=== PATIENT | male | born 1970 | race Caucasian/White ===

== ENCOUNTER 2019-01-31 14:38 | Inpatient (IN) | payer BC ==
[2019-01-31] VITALS (9 sets, daily range): BP systolic 115–167
[~2019-01-31] VITALS: Ht 185.4 cm; Wt 90.7 kg
--- NOTE | 2019-01-31 14:38 | NUR ---
BROUGHT BACK TO BED #1 VIA WHEELCHAIR, PLACED IN BED #1 AND TRIAGED. REPORT GIVEN TO DAVID
--- NOTE | 2019-01-31 14:40 | NUR ---
TING Chen at bedside examining patient.
[2019-01-31] MEDS ORDERED: ONDANSETRON HCL 4 MG/2 ML VIAL IVP ONE (14:45)
[2019-01-31] MEDS ORDERED: LORazepam 2 MG/ML VIAL IVP ONE (14:45)
[2019-01-31] MEDS ORDERED: NS 1000 ML IV.SOLN IV ONE (14:45)
[2019-01-31] MEDS ORDERED: MORPHINE 4 MG/ML INJ. SYRINGE IVP ONE (14:45)
--- NOTE | 2019-01-31 14:45 | NUR ---
Patient presented to ER after checking [facility] but referred to ER for increased labs. Patient A&Ox4, afebrile, skin pink/yellowish warm, cap refill <3, afebrile, ambulatory to ER, arrived with family members. Patient states hlast alcoholic drink 2 days ago. Patient shaking hands, denies pain, denies N/V/D at this time, patientstates he feels anxious.
--- NOTE | 2019-01-31 14:55 | NUR ---
Blood cultures and Lactic acid sent to lab with blood draw.
[2019-01-31] MEDS ORDERED: FOLIC ACID 5 MG/ML VIAL IV ONE (15:15)
[2019-01-31] MEDS ORDERED: THIAMINE HCL 100 MG in NS 50 ML IV ONE (15:15)
--- NOTE | 2019-01-31 15:19 | NUR ---
Report to Aracelis ROSADO
[2019-01-31 15:21] LABS: BASOPHILS % (AUTO) 0.5 % (0.0-2.0); EOSINOPHILS % (AUTO) 0.8 % (0.0-4.0); HEMATOCRIT 41.6 % (36-54); HEMOGLOBIN 14.4 g/dL (14.0-18.0); LYMPHOCYTES # (AUTO) 1.2 K/uL (1.0-5.5); MEAN CORPUSCULAR HEMOGLOBIN 34 pg (27-31); MEAN CORPUSCULAR HGB CONC 35 % (32-36); MEAN CORPUSCULAR VOLUME 99 fL (79.0-98.0); MONOCYTES # (AUTO) 0.5 K/uL (0.0-1.0); MONOCYTES % (AUTO) 9.1 % (1.7-9.3); NEUTROPHILS # (AUTO) 3.7 K/uL (1.8-7.7); NEUTROPHILS % (AUTO) 67.6 % (40.0-70.0); RED CELL DISTRIBUTION WIDTH 13.7 % (9.0-15.0); WHITE BLOOD COUNT (AUTO) 5.5 K/uL (4.8-10.8)
[2019-01-31 15:38] LABS: PROTHROMBIN TIME 10.3 SECS (9.5-12.5)
[2019-01-31 15:40] LABS: ALBUMIN 2.5 g/dL (3.4-4.8); CREATININE 0.8 mg/dL (0.55-1.30); PLATELET COUNT (AUTO) 147 K/uL (130-430); POTASSIUM 3.3 mmol/L (3.5-5.1); TOTAL BILIRUBIN 2.7 mg/dL (0.0-1.0)
[2019-01-31] MEDS ORDERED: THIAMINE HCL 100 MG/ML VIAL ONE (15:41)
--- NOTE | 2019-01-31 15:42 | NUR ---
Patient medicated per MD orders. Patient tolerated well.
[2019-01-31 15:55] LABS: BILIRUBIN,URINE 1+ (NEGATIVE); BLOOD, URINE NEGATIVE (NEGATIVE); CLARITY/URINE CLEAR (CLEAR); COLOR,URINE AMBER (YELLOW); GLUCOSE,URINE NEGATIVE (NEGATIVE); KETONES,URINE NEGATIVE (NEGATIVE); LEUKOCYTE ESTERASE ,URINE NEGATIVE (NEGATIVE); NITRITE, URINE NEGATIVE (NEGATIVE); PROTEIN URINE 1+ (NEGATIVE)
--- NOTE | 2019-01-31 15:57 | NUR ---
Pt reports he does not take any home medications
[2019-01-31] MEDS ORDERED: NACL 0.9% 1,000 ML IV ONE (16:00)
[2019-01-31 16:22] LABS: BACTERIA,URINE FEW /HPF (None Seen); MUCUS,URINE None Seen /LPF (None Seen); RBC,URINE 0-3 /HPF (0-3); WBC,URINE 0-3 /HPF (0-3)
[2019-01-31] MEDS ORDERED: MAGNESIUM SULFATE IV ONE (16:30)
[2019-01-31] MEDS ORDERED: FOLIC ACID IV ONE (16:30)
[2019-01-31] MEDS ORDERED: THIAMINE HCL 100 MG, MVI 10 ML in NACL 0.9% 1,000 ML IV ONE (16:30)
[2019-01-31] MEDS ORDERED: NACL 0.9% IV ONE (16:30)
[2019-01-31] MEDS ORDERED: FOLIC ACID 1 MG, MAGNESIUM SULFATE 1 GM in NS 100 ML IV ONE (16:33)
--- NOTE | 2019-01-31 16:38 | NUR ---
Patient pulling off leads and blood pressure cuff. Patient appears to be agitated. Patient is tachycardiac at 98, BP is currently 181/93 Respiration 18 O2 98. notfied.
[2019-01-31 16:40] LABS: CALCIUM 8.8 mg/dL (8.4-11.0)
--- NOTE | 2019-01-31 16:42 | NUR ---
Patient now resting in bed. appears more comfortable. Girlfriend at bedside conversing with patient.
--- NOTE | 2019-01-31 16:50 | NUR ---
Patient will be admitted to care of Dr. Camejo. Admitted to ICU unit. Will go to room ICU 4. Belongings list completed. Summary report printed. Report will be given at bedside.
--- NOTE | 2019-01-31 16:59 | NUR ---
Transfer to ICU via ACLS protocol. Licensed nurse present. IV present no signs or symptoms of infiltration.
--- NOTE | 2019-01-31 17:18 | NUR ---
Opening Note Patient received via gurney and placed on ICU-4 awake and alert with no signs of distress @ this time. Patient connected on quality assurance monitor chassis with NSR. Patient on room air breathing evenly and unlabored. Patient has a right forearm 20 gauge IV. Patient has currently no complaints of pain. Skin intact. Safety precautions enforced.
--- NOTE | 2019-01-31 17:48 | NUR ---
ADMITTING MD DR MOYA WAS CALLED RE: MEDICATION ORDERS FOR PAIN, HTN.. SPOKE TO KRYSTAL.
--- NOTE | 2019-01-31 17:54 | NUR ---
CONSULTATION PAGED/CALLED Reason for Consultation: [] ETOH/WITHDRAWAL Person Who was Notified: [] ZAFAR Consulting Physician: [] DR Xenia ALEJO CONSULT MD'S TEL NO: [phone] Feed Crusher Operator Specialty: [] PSYCH Ordering Physician: [] DR Xenia MOYA
[2019-01-31] MEDS ORDERED: cloNIDine HCL 0.1 MG TABLET PO PRN (18:00)
--- NOTE | 2019-01-31 18:10 | NUR ---
Patient is anxious and is attempting to get out of bed at this time while looking for his girlfriend and clothes. Reoriented patient and educated to stay in bed for safety reasons. Patient verbalized understanding.
--- NOTE | 2019-01-31 18:17 | NUR ---
Pt medicated with Ativan and Librium and clonidine but unable to scan at this time.
--- NOTE | 2019-01-31 18:17 | NUR ---
Patient medicated with Ativan 1 mg IV push, Librium 50 mg PO, and clonidine 0.1 mg PO as ordered. Medication unable to scan at this time.
[2019-01-31] MEDS ORDERED: LORazepam 2 MG/ML VIAL ONE (18:23)
[2019-01-31] MEDS ORDERED: cloNIDine HCL 0.1 MG TABLET ONE (18:23)
[2019-01-31] MEDS ORDERED: chlordiazePOXIDE HCL 25 MG CAPSULE ONE (18:24)
--- NOTE | 2019-01-31 18:40 | NUR ---
MD Rounds Dr. Camejo @ bedside for examination. New orders received.
--- NOTE | 2019-01-31 19:21 | NUR ---
Closing Note Endorsed to equipment analyst RN using SBAR format. Patient in no signs of distress.
--- NOTE | 2019-01-31 20:00 | NUR ---
AAOX4. IN NO APPARENT DISTRESS. VSS. DENIES ACUTE PAIN. POX 98%. BREATH SOUNDS ESSENTIALLY CLEAR. ON ROOM AIR. BOWEL SOUNDS (+). PULSES PALPABLE. SKIN W/D. COLOR SATISFACTORY. HOB UP TO COMFORT. SIDE RAILS UP. SR. CALL LIGHT WITHIN REACH. AT BEDSIDE VISITING.
[2019-01-31] MEDS: PANTOPRAZOLE SODIUM 40 MG/VIAL (PROTONIX) IVP SCH (20:27)
[2019-01-31] MEDS: ENOXAPARIN SODIUM 40 MG/0.4 ML SYRINGE SUBCUT SCH (20:28)
[2019-01-31] MEDS: LORazepam 2 MG/ML VIAL IVP PRN (20:29)
[2019-01-31] MEDS: HYDROmorphone 1 MG INJ. 1 MG/ML AMPUL IVP PRN (20:30)
[2019-01-31] MEDS: chlordiazePOXIDE HCL 25 MG CAPSULE PO PRN (20:30)
[2019-01-31] MEDS: cloNIDine HCL 0.2 MG TABLET PO SCH (20:31)
--- NOTE | 2019-01-31 21:00 | NUR ---
RESTLESS. ANXIOUS. BP ON THE HIGH SIDE. LIBRIUM 20 MG, DILAUDID 1 MG IVP FOR ANALGESIA AND ATIVAN 1 MG IVP GIVEN FOR SEDATION.
[2019-02-01] VITALS (17 sets, daily range): BP systolic 123–160
--- NOTE | 2019-02-01 | NUR ---
DOZES ON AND OFF. 0 DISTRESS. DENIES PAIN, AND SOB. REPOSITIONS SELF WELL. LEFT FOR HOME EARLIER.
--- NOTE | 2019-02-01 03:00 | NUR ---
SLEPT INTERMITTENTLY. CLONIDINE 0.1MG PO GIVEN FOR HTN. VOIDED 350CC CLEAR CONCENTRATED DELMY URINE VIA URINAL.
--- NOTE | 2019-02-01 04:00 | NUR ---
SLEPT ON AND OFF. VSS. DENIES PAIN, DISTRESS, SOB. TURNS SELF WELL. ATIVAN 1 MG IVP GIVEN FOR ANXIETY. BANANA BAG ALL INFUSED, RIGHT PIV SALINE LOCKED.
[2019-02-01] MEDS: LORazepam 2 MG/ML VIAL IVP PRN ×3 (04:11→19:00)
--- NOTE | 2019-02-01 05:00 | NUR ---
REFUSED CHG BATH OFFERED.
--- NOTE | 2019-02-01 06:00 | NUR ---
GOT OOB , STOOD UP. ORIENTED TO TIME AND PLACE. INSTRUCTED NOT TO GET OOB BUT TO CALL NURSE FOR ASSISTANCE. SEEMS TO UNDERSTAND. REMAINS IN GUARDED CONDITION.
[2019-02-01 06:14] LABS: BASOPHILS % (AUTO) 0.6 % (0.0-2.0); EOSINOPHILS # (AUTO) 0.1 K/uL (0.0-0.4); EOSINOPHILS % (AUTO) 2.3 % (0.0-4.0); HEMATOCRIT 35.8 % (36-54); HEMOGLOBIN 12.3 g/dL (14.0-18.0); LYMPHOCYTES # (AUTO) 1.5 K/uL (1.0-5.5); LYMPHOCYTES % (AUTO) 37.4 % (20.5-51.5); MEAN CORPUSCULAR HEMOGLOBIN 35 pg (27-31); MEAN CORPUSCULAR HGB CONC 34 % (32-36); MEAN CORPUSCULAR VOLUME 101 fL (79.0-98.0); MONOCYTES # (AUTO) 0.3 K/uL (0.0-1.0); MONOCYTES % (AUTO) 6.8 % (1.7-9.3); NEUTROPHILS # (AUTO) 2.1 K/uL (1.8-7.7); NEUTROPHILS % (AUTO) 52.9 % (40.0-70.0); PLATELET COUNT (AUTO) 78 K/uL (130-430); RED BLOOD CELL COUNT(AUTO) 3.55 MIL/uL (4.2-6.2); RED CELL DISTRIBUTION WIDTH 13.9 % (9.0-15.0)
[2019-02-01 06:21] LABS: CREATININE 0.61 mg/dL (0.55-1.30)
--- NOTE | 2019-02-01 07:29 | NUR ---
Opening Note Patient received sleeping in bed. Patient on manager cardiac cath with NSR. Patient on room air breathing evenly and unlabored. No signs of distress noted. Patient has a right forearm 20 IV patent, flushing well, saline-locked. Patient uses urinal to void. Patient has no complaints of pain. Safety precautions enforced.
[2019-02-01 08:13] LABS: WHITE BLOOD COUNT (AUTO) 3.9 K/uL (4.8-10.8)
[2019-02-01] MEDS: chlordiazePOXIDE HCL 25 MG CAPSULE PO PRN ×2 (08:54→18:15)
[2019-02-01] MEDS: PANTOPRAZOLE SODIUM 40 MG/VIAL (PROTONIX) IVP SCH ×2 (08:58→20:21)
[2019-02-01] MEDS: cloNIDine HCL 0.2 MG TABLET PO SCH ×2 (08:58→20:21)
--- NOTE | 2019-02-01 09:18 | NUR ---
IV Left AC 20 gauge angiocath placed patent, flushing well, saline-locked.
[2019-02-01] MEDS ORDERED: POTASSIUM CHLORIDE 20 MEQ TAB.PRT.SR PO ONE ×2 (11:00→15:00)
[2019-02-01] MEDS ORDERED: MAGNESIUM SULFATE 4 GM in D5W 250 ML IV ONE (11:00)
--- NOTE | 2019-02-01 12:00 | NUR ---
RN Rounds Patient resting in bed with family @ bedside. No signs of distress noted.
[2019-02-01] MEDS ORDERED: THIAMINE HCL 100 MG TABLET PO ONE (15:15)
--- NOTE | 2019-02-01 15:42 | NUR ---
Transfer Patient transferred via wheelchair. to [address]B No signs of distress noted. Report given using SBAR format to party plan sales host/hostess.
--- NOTE | 2019-02-01 15:45 | NUR ---
Transfer from ICU: Received from ICU on a wheelchair accompanied by family members. Patient is calm. Oriented to room, call light within reach.
--- NOTE | 2019-02-01 18:12 | NUR ---
end of shift: Needs attended. No change in assessment. Patient is calm. Significant other in the room.
--- NOTE | 2019-02-01 20:13 | NUR ---
Opening notes Pt alert, awake, no s/s distress noted. VSS, calm. IV saline lock L. FA 22G clear and patent. Pt's significant other will stay at bedside. Call light within reach. To monitor.
[2019-02-01] MEDS: ENOXAPARIN SODIUM 40 MG/0.4 ML SYRINGE SUBCUT SCH (20:22)
[2019-02-01] MEDS: HYDROmorphone 1 MG INJ. 1 MG/ML AMPUL IVP PRN (20:40)
--- NOTE | 2019-02-01 20:44 | NUR ---
Pain med Pt c/o back pain 11/23, medicated with Dilaudid 1mg IVP as needed. Encouraged pt to call for assistance, pt verbalized understanding. To monitor.
--- NOTE | 2019-02-02 00:15 | NUR ---
Rounds Pt asleep, easily arousable. No s/s distress or discomfort noted. Significant other at bedside. Call light within reach. To monitor.
[2019-02-02 02:53] VITALS: BP_SYST 150
--- NOTE | 2019-02-02 04:30 | NUR ---
Rounds Pt asleep, no s/s distress noted. IV saline lock clear and patent. Call light within easy reach. Pt's significant other as bedside. To monitor.
[2019-02-02] MEDS: chlordiazePOXIDE HCL 25 MG CAPSULE PO PRN ×2 (06:10→12:40)
--- NOTE | 2019-02-02 06:10 | NUR ---
Closing notes Pt asleep, easily arousable. Librium given as needed. No tremors or shaking noted at this time. IV saline lock L. FA clear and patent. Call light within reach. Bed low, locked, side rails up x3. To endorse to dayshift nurse.
--- NOTE | 2019-02-02 08:00 | NUR ---
PATIENT IS AWAKE, A/OX3. IV ON THE LEFT FA, #22. CALL LIGHT IN PLACE, BED LOCKED AT THE LOWEST POSITION, WILL CONTINUE TO MONITOR. INSTRUCTED PATIENT TO USE CALL LIGHT FOR NEEDS.
[2019-02-02 08:05] VITALS: BP_SYST 164
[2019-02-02] MEDS: cloNIDine HCL 0.2 MG TABLET PO SCH (08:10)
[2019-02-02] MEDS: PANTOPRAZOLE SODIUM 40 MG/VIAL (PROTONIX) IVP SCH (08:11)
[2019-02-02 08:14] LABS: CALCIUM 8.5 mg/dL (8.4-11.0); CREATININE 0.7 mg/dL (0.55-1.30); PHOSPHORUS 2.9 mg/dL (2.7-4.5); POTASSIUM 3.7 mmol/L (3.5-5.1)
[2019-02-02 08:15] LABS: BASOPHILS % (AUTO) 0.5 % (0.0-2.0); EOSINOPHILS # (AUTO) 0.1 K/uL (0.0-0.4); EOSINOPHILS % (AUTO) 1.9 % (0.0-4.0); HEMATOCRIT 36.4 % (36-54); HEMOGLOBIN 12.6 g/dL (14.0-18.0); LYMPHOCYTES % (AUTO) 20.5 % (20.5-51.5); MEAN CORPUSCULAR HEMOGLOBIN 35 pg (27-31); MEAN CORPUSCULAR HGB CONC 35 % (32-36); MEAN CORPUSCULAR VOLUME 101 fL (79.0-98.0); MONOCYTES # (AUTO) 0.4 K/uL (0.0-1.0); MONOCYTES % (AUTO) 7.7 % (1.7-9.3); NEUTROPHILS # (AUTO) 3.5 K/uL (1.8-7.7); NEUTROPHILS % (AUTO) 69.4 % (40.0-70.0); PLATELET COUNT (AUTO) 90 K/uL (130-430); RED BLOOD CELL COUNT(AUTO) 3.62 MIL/uL (4.2-6.2)
[2019-02-02] MEDS ORDERED: THIAMINE HCL 100 MG TABLET PO SCH (09:00)
--- NOTE | 2019-02-02 10:00 | NUR ---
PATIENT IS SEEN WALKING AROUND THE ROOM. NO DISTRESS NOTED.
[2019-02-02] MEDS: HYDROmorphone 1 MG INJ. 1 MG/ML AMPUL IVP PRN (10:24)
--- NOTE | 2019-02-02 11:34 | NUR ---
PATIENT IS GIVEN BED BATH, WITH NURSE'S SUPERVISION
[2019-02-02 12:00] VITALS: BP_SYST 130
--- NOTE | 2019-02-02 13:37 | NUR ---
PATIENT IS FOUND WANDERING AROUND THE HALLWAY TOWARD THE LOBBY. PATIENT IS ESCORTED BACK TO THE ROOM.
--- NOTE | 2019-02-02 15:03 | NUR ---
PATIENT IS RESTING, WITH FAMILY AT BEDSIDE.
[2019-02-02 16:00] VITALS: BP_SYST 137
[2019-02-02] MEDS ORDERED: THIA50TA10 PO (16:52)
[2019-02-02] MEDS ORDERED: MAGN400T10 PO (16:52)
[2019-02-02 16:54] VITALS: BP_SYST 137
[2019-02-02] MEDS ORDERED: CAT.1 PO (17:45)
--- NOTE | 2019-02-02 18:00 | NUR ---
D/C Patient Patient given medication reconciliation form and D/C instructions. Exit Care provided. Patient verbalized understanding. MD discussed with patient the results and treatment provided. Ambulatory with steady gait for discharge to home. Patient in stable condition, ID band removed. IV catheter removed, intact and dressing applied, no active bleeding. Rx of CATAPRES,THIAMINE, MAGNESIUM OXIDE is given. Patient educated on pain management. All belongings sent with patient. Patient also his girlfriend are advised to follow up with AA.
== END 2019-02-02 18:07 | disposition home or self-care (01) | DRG 439 ==
LOC: SED 14:38 → SIC 16:17 → STU 02-01 15:45 → SMU 02-01 23:29
PROVIDERS: ADMIT Family Medicine; ATTEND Family Medicine
DX: K85.90 Acute pancreatitis without necrosis or infection, unspecified (principal); F10.239 Alcohol dependence with withdrawal, unspecified; R74.0 Nonspecific elevation of levels of transaminase and lactic acid dehydrogenase [LDH]; R73.9 Hyperglycemia, unspecified; K70.9 Alcoholic liver disease, unspecified; E87.8 Other disorders of electrolyte and fluid balance, not elsewhere classified; Z79.899 Other long term (current) drug therapy
CPT/HCPCS: 36415; 71045; 80048; 80053; 81000-TC; 82150-TC; 83605; 83690-TC; 83735-TC; 84100-TC; 84484; 85025; 85610-TC; 85730-TC; 87040-TC; 87081; 87086; 93005; 96361; 96365; 96375; 99285; C9113; G0482; J1170; J1650; J2060; J2270; J2405; J3411; J3475; J3490; J7030; J7060

== ENCOUNTER 2019-02-04 11:31 | Emergency (ER) | payer BC ==
[~2019-02-04] VITALS: Ht 195.6 cm; Wt 99.8 kg
[~2019-02-04 11:31] MED LIST: CAT.1 PO; MAGN400T10 PO; THIA50TA10 PO
[2019-02-04 11:40] VITALS: BP_SYST 163
[2019-02-04] MEDS ORDERED: ASPIRIN 81 MG TAB.CHEW PO ONE (11:45)
[2019-02-04] MEDS ORDERED: NACL 0.9% 1,000 ML IV ONE (11:45)
[2019-02-04] MEDS ORDERED: NITROGLYCERIN 0.4 MG TAB.SUBL SL ONE (11:45)
[2019-02-04 12:40] LABS: BASOPHILS # (AUTO) 0.1 K/uL (0.0-0.2); BASOPHILS % (AUTO) 1.1 % (0.0-2.0); EOSINOPHILS # (AUTO) 0.1 K/uL (0.0-0.4); EOSINOPHILS % (AUTO) 1.5 % (0.0-4.0); HEMATOCRIT 39.7 % (36-54); HEMOGLOBIN 13.5 g/dL (14.0-18.0); LYMPHOCYTES # (AUTO) 0.9 K/uL (1.0-5.5); LYMPHOCYTES % (AUTO) 19.8 % (20.5-51.5); MEAN CORPUSCULAR HEMOGLOBIN 34 pg (27-31); MEAN CORPUSCULAR HGB CONC 34 % (32-36); MEAN CORPUSCULAR VOLUME 101 fL (79.0-98.0); MONOCYTES # (AUTO) 0.6 K/uL (0.0-1.0); MONOCYTES % (AUTO) 12.5 % (1.7-9.3); NEUTROPHILS # (AUTO) 3.1 K/uL (1.8-7.7); NEUTROPHILS % (AUTO) 65.1 % (40.0-70.0); PLATELET COUNT (AUTO) 169 K/uL (130-430); RED BLOOD CELL COUNT(AUTO) 3.93 MIL/uL (4.2-6.2); RED CELL DISTRIBUTION WIDTH 13.8 % (9.0-15.0); WHITE BLOOD COUNT (AUTO) 4.8 K/uL (4.8-10.8)
[2019-02-04 12:54] LABS: CALCIUM 9.6 mg/dL (8.4-11.0); CHLORIDE 104 mmol/L (98-107); CREATININE 0.77 mg/dL (0.55-1.30); GLUCOSE 102 mg/dL (70-99); POTASSIUM 3.2 mmol/L (3.5-5.1); SODIUM SERUM 134 mmol/L (136-145); UREA NITROGEN, BLOOD 4 mg/dL (8-21)
[2019-02-04 12:57] LABS: ANION GAP < 3 (5-15); GFR AFRICAN AMERICAN 140 mL/min (>90)
[2019-02-04 13:13] LABS: ALANINE AMINOTRANSFERASE 65 U/L (12-78); ALBUMIN 2.9 g/dL (3.4-4.8); ASPARTATE AMINOTRANSFERASE 63 U/L (10-37); LIPASE 293 U/L (73-393); TOTAL BILIRUBIN 1.2 mg/dL (0.0-1.0)
[2019-02-04] MEDS ORDERED: POTASSIUM CHLORIDE 20 MEQ TAB.PRT.SR PO ONE (13:15)
[2019-02-04 13:16] LABS: ACETAMINOPHEN < 1 ug/mL (1-30); ALCOHOL, BLOOD < 3 mg/dL (<10)
[2019-02-04 13:29] LABS: BILIRUBIN,URINE NEGATIVE (NEGATIVE); CLARITY/URINE CLEAR (CLEAR); COLOR,URINE YELLOW (YELLOW); GLUCOSE,URINE NEGATIVE (NEGATIVE); KETONES,URINE NEGATIVE (NEGATIVE); LEUKOCYTE ESTERASE ,URINE NEGATIVE (NEGATIVE); PH,URINE 6.5 (5.0-8.0); PROTEIN URINE NEGATIVE (NEGATIVE)
[2019-02-04 13:30] LABS: BLOOD, URINE TRACE (NEGATIVE); NITRITE, URINE NEGATIVE (NEGATIVE)
[2019-02-04 13:31] LABS: RBC,URINE 0-3 /HPF (0-3); WBC,URINE 0-3 /HPF (0-3)
[2019-02-04 13:32] LABS: BACTERIA,URINE RARE /HPF (None Seen)
[2019-02-04 13:34] LABS: BARBITURATE, URINE NEGATIVE (NEG <=200); BENZODIAZEPINE, URINE POSITIVE (NEG <=150); CANNABINOID, URINE POSITIVE (NEG <=50); COCAINE, URINE NEGATIVE (NEG <=150); METHAMPHETAMINES SCREEN,URINE NEGATIVE (NEG <=500); OPIATE, URINE NEGATIVE (NEG <=100); PHENCYCLIDINE SCREEN,URINE NEGATIVE (NEG <=25); UR TRICYCLIC ANTIDEPRESSANTS NEGATIVE (NEG <=300); URINE AMPHETAMINE NEGATIVE (NEG <=500); URINE METHADONE NEGATIVE (NEG <=200); URINE OXYCODONE SCREEN NEGATIVE (NEG <=100); URINE PROPOXYPHENE SCREEN NEGATIVE (NEG <=300)
[2019-02-04 13:47] VITALS: BP_SYST 144
== END 2019-02-04 13:47 | disposition home or self-care (01) ==
LOC: SED 11:31
DX: K29.70 Gastritis, unspecified, without bleeding (principal); I10 Essential (primary) hypertension; E87.6 Hypokalemia; R07.2 Precordial pain; R74.0 Nonspecific elevation of levels of transaminase and lactic acid dehydrogenase [LDH]; F10.20 Alcohol dependence, uncomplicated; Y90.0 Blood alcohol level of less than 20 mg/100 ml; Z79.899 Other long term (current) drug therapy
CPT/HCPCS: 36415; 71046; 80053; 80307; 81000; 83690; 84484; 85025; 93005; 99284; G0480; G0481; G0482; J7030